=== PATIENT | female | born 1990 | race Caucasian/White ===

== ENCOUNTER → 2016-06-19 | Outpatient (CLI) | payer MEDICAID ==
[~2016-06-19] MED LIST: ADIPEX-P37.5 M1 PO; AMOXICILLIN 50500 MG PO; DARVOCET-N 1001 EACH PO; FLEXERIL10 MG PO; LORTAB 5/500 501 TAB PO; MACROBID 100MG100 MG PO; MOTRIN 400MG.400 MG PO; NOMEDS; NOMEDS *; PRENATAL PLUS1 TA1 PO; PYRIDIUM 200MG200 MG PO; SEPTRA DS 800 M1 TAB PO; VITAMIN B COMPL1 TA3 PO; ZOFRAN 8MG TABLE8 MG PO; ZOFRAN4 MG PO
[2016-06-21 18:40] LABS: Neisseria gonorrhoeae, NAA Negative (Negative)
== END ==
LOC: LAB 17:27
PROVIDERS: Nurse Practitioner Obstetrics & Gynecology
DX: N30.11 Interstitial cystitis (chronic) with hematuria (principal); R10.2 Pelvic and perineal pain; N94.12 Deep dyspareunia